=== PATIENT | male | born 1955 | race Caucasian/White ===

== ENCOUNTER 2022-07-24 10:13 | Day surgery (SDC) | payer BC ==
[~2022-07-24 10:13] MED LIST: Acetaminophen 1,000 MG in Premix Bag 1 BAG IV SCH; Albuterol 0.083% 2.5 MG/3 ML Neb Soln NEB PRN; Bupivacaine 0.5% 10 ML SDV ONE; HYDROmorphone 1 MG/ML Syringe IVPUSH PRN; Lactated Ringers 1,000 ML IV SCH; Lidocaine 2% 5 ML SDV ONE; Metoclopramide 10 MG/2 ML SDV IVPUSH PRN; Morphine 2 MG/ML SYRINGE IVPUSH PRN; Naloxone 0.4 MG/ML SDV IVPUSH PRN; Ondansetron 4 MG/2 ML SDV IVPUSH PRN; Pregabalin 75 MG Cap PO SCH; ceFAZolin 2 GM in Sodium Chloride 0.9% 50 ML IV ONE; droPERidol 5 MG/2 ML SDV IVPUSH PRN; fentaNYL 50 MCG/ML SDV IVPUSH PRN
[2022-07-24] MEDS ORDERED: Bupivacaine 0.5% 10 ML SDV ONE (10:59)
[2022-07-24] MEDS ORDERED: Bupivacaine 0.25% 30 ML SDV ONE (11:30)
[2022-07-24] MEDS ORDERED: Ropivacaine 0.5% 5 MG/ML 30 ML SDV ONE (11:30)
[2022-07-24] MEDS ORDERED: Lidocaine 2% 5 ML SDV ONE (11:36)
[2022-07-24] MEDS ORDERED: Ondansetron 4 MG/2 ML SDV ONE (11:36)
[2022-07-24] MEDS ORDERED: Rocuronium Bromide 50 MG/5 ML Syringe ONE (11:36)
[2022-07-24] MEDS ORDERED: Dexamethasone 4 MG/ML 5 ML MDV ONE (11:36)
[2022-07-24] MEDS ORDERED: ceFAZolin 2 GM Vial ONE (11:36)
[2022-07-24] MEDS ORDERED: Water For Injection, Sterile 20 ML ONE (11:36)
[2022-07-24] MEDS ORDERED: Propofol 200 MG/20 ML SDV ONE (11:36)
[2022-07-24] MEDS ORDERED: Sugammadex Sodium 200 MG/2 ML VIAL ONE (11:36)
[2022-07-24] MEDS ORDERED: fentaNYL 100 MCG/2 ML SDV ONE (11:37)
[2022-07-24] MEDS ORDERED: Phenylephrine HCl 0.5 MG/5 ML AMP ONE (12:06)
[2022-07-24] MEDS ORDERED: ePHEDrine 50 MG/ML SDV ONE (12:17)
== END 2022-07-24 15:40 | disposition home or self-care (01) ==
LOC: MW.SDS 10:13
PROVIDERS: ATTEND Surgery
DX: K40.90 Unilateral inguinal hernia, without obstruction or gangrene, not specified as recurrent (principal); I10 Essential (primary) hypertension; K21.9 Gastro-esophageal reflux disease without esophagitis; E78.00 Pure hypercholesterolemia, unspecified; M19.90 Unspecified osteoarthritis, unspecified site; Z98.890 Other specified postprocedural states; Z79.899 Other long term (current) drug therapy
CPT/HCPCS: 49650; A9270; C1781; J0131; J0690; J1100; J2370; J2405; J2704; J2795; J3010; J3490; J7120; 00840; 64488